=== PATIENT | female | born 1995 | race Caucasian/White ===

== ENCOUNTER 2021-05-08 01:05 | Emergency (ER) | payer OTHER ==
[2021-05-08 01:24] VITALS: TEMP 98.2; BMI 32.8
[2021-05-08] MEDS ORDERED: SODIUM CHLORIDE 0.9% 500 ML INFUS.BAG IV ONE (01:48)
[2021-05-08 02:13] LABS: PH,URINE 5.5 (5.0-8.0); URINE APPEARANCE CLEAR; URINE BILIRUBIN NEGATIVE (NEGATIVE); URINE COLOR YELLOW; URINE GLUCOSE (UA) NEGATIVE (NEGATIVE); URINE KETONE NEGATIVE (NEGATIVE); URINE LEUK ESTERASE NEGATIVE (NEGATIVE); URINE NITRITE NEGATIVE (NEGATIVE); URINE PROTEIN NEGATIVE (NEGATIVE); URINE UROBILINOGEN 0.2 mg/dL (0.2-1.0)
[2021-05-08 02:19] LABS: METHADONE, UR NEGATIVE (NEGATIVE)
[2021-05-08 02:20] LABS: OPIATES, URI NEGATIVE (NEGATIVE); PHENCYCLIDINE,URINE NEGATIVE (NEGATIVE); URINE BARBITURATES NEGATIVE (NEGATIVE); URINE BENZODIAZEPINES NEGATIVE (NEGATIVE)
[2021-05-08 02:23] LABS: COCAINE, UR NEGATIVE (NEGATIVE); URINE AMPHETAMINES NEGATIVE (NEGATIVE)
[2021-05-08 02:34] LABS: BASO % 0.4 % (0-2.0); EOS % 1.7 % (0-4.5); HEMATOCRIT 43.2 % (32.4-45.2); HEMOGLOBIN 14.4 GM/dL (10.7-15.3); LYMPH % 34.2 % (8-40); MCH 27.6 pg (25.7-33.7); MCHC 33.3 g/dl (32.0-36.0); MEAN CELL VOLUME 82.9 fl (80-96); NEUT % 58.7 % (42.8-82.8); PLATELET COUNT 422 10^3/uL (134-434); RBC 5.21 M/mm3 (3.60-5.2); RDW 14.8 % (11.6-15.6); WHITE BLOOD COUNT 5.8 K/mm3 (4.0-10.0)
[2021-05-08 02:36] LABS: HCG,QUALITATIVE URINE Negative
[2021-05-08 02:50] LABS: CHLORIDE 109 mmol/L (98-107); SODIUM 141 mmol/L (136-145)
[2021-05-08 02:54] LABS: ALBUMIN 4.3 g/dl (3.4-5.0); BLOOD UREA NITROGEN 13.7 mg/dL (7-18); CO2 26 mmol/L (21-32); GLUCOSE,RANDOM 85 mg/dL (74-106)
[2021-05-08 02:57] LABS: CREATININE 0.9 mg/dL (0.55-1.3); SGOT/AST 67 U/L (15-37)
[2021-05-08 02:58] LABS: TOT PROT 8.8 g/dl (6.4-8.2)
[2021-05-08 02:59] LABS: BILIRUBIN,TOTAL 0.5 mg/dL (0.2-1)
[2021-05-08 03:00] LABS: ALK PHOS 74 U/L (45-117)
[2021-05-08 04:19] LABS: ANION GAP 6 MMOL/L (8-16); SGPT/ALT 28 U/L (13-61)
[2021-05-08 05:50] LABS: CALCIUM 8.2 mg/dL (8.5-10.1)
[2021-05-08 05:54] LABS: CREATININE 0.6 mg/dL (0.55-1.3)
[2021-05-08 06:33] VITALS: BP 129/84; PULSE 66
== END 2021-05-08 06:35 | disposition home or self-care (01) ==
LOC: JER 01:05
DX: F10.920 Alcohol use, unspecified with intoxication, uncomplicated (principal)
CPT/HCPCS: 36415; 70450-TC; 72125-TC; 80048; 80053; 80307; 81003; 84703; 85025; 93005; 93010; 99285-25